=== PATIENT | female | born 1980 | race Caucasian/White ===

== ENCOUNTER 2017-02-04 17:58 | Emergency (ER) | payer OTHER, MEDICAID ==
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
[2017-02-04 19:05] VITALS: RESP 20
[2017-02-04 19:55] VITALS: BP 122/77; PULSE 75; TEMP 102.2; O2SAT 99
== END 2017-02-04 19:53 | disposition home or self-care (01) ==
DX: S92.352A Displaced fracture of fifth metatarsal bone, left foot, initial encounter for closed fracture (principal); S52.602A Unspecified fracture of lower end of left ulna, initial encounter for closed fracture; J45.909 Unspecified asthma, uncomplicated; F17.200 Nicotine dependence, unspecified, uncomplicated; V49.49XA Driver injured in collision with other motor vehicles in traffic accident, initial encounter; Y92.410 Unspecified street and highway as the place of occurrence of the external cause; Y99.8 Other external cause status; Y93.89 Activity, other specified
CPT/HCPCS: A4565; L4386